=== PATIENT | male | born 1940 | race Caucasian/White ===

== ENCOUNTER → 2017-07-09 12:31 | Outpatient (CLI) | payer MEDICARE, BC ==
[~2017-07-09 12:31] MED LIST: BAYER CHEWABLE81 MG PO; CARDURA4 MG PO; CELEBREX200 MG PO; ELIQUIS2.5 MG PO; FISH OIL 1,2001 CAP PO; HYDROCODONE-APA1 TAB PO; LOZOL 2.5 MG T2.5 MG PO; MULTIPLE VITAMI1 TA1 PO; NORVASC5 MG PO; OSTEO BI-FLEX1 EAC1 PO; PRILOSEC20 MG PO; SOMA350 MG PO; TIMOPTIC 0.5 % O5 ML EACH EYE; TRAVATAN Z2.5 ML EACH EYE
== END | disposition home or self-care (01) ==
LOC: D.RAD 12:31
DX: R13.10 Dysphagia, unspecified (principal)